=== PATIENT | male | born 1990 | race Caucasian/White ===

== ENCOUNTER 2023-12-27 11:25 | Day surgery (SDC) | payer OTHER, SELFPAY ==
[2023-12-25 10:46] VITALS: BMI 34.9
[2023-12-27] VITALS (10 sets, daily range): BP systolic 120–144; BP diastolic 66–93; PULSE 81–100; RESP 10–17; TEMP 36.9–37.4; O2SAT 95–99; BMI 34.9
--- NOTE | 2023-12-27 11:49 | PM.PREOP ---
Pre-operative Note Interval Note History & Physical reviewed/Exam performed by Physician: Yes Changes to H&P: No
[2023-12-27] MEDS: LACTATED RINGERS 1,000 ML 42 ML IV ×2 (12:03→13:53)
--- NOTE | 2023-12-27 12:24 | SUR.PREOP ---
Block start time [1217] . Time out completed 1215. Monitoring initiated and maintained throughout procedure. Oxygen and medications given per anesthesiologist instructions. Patient remained stable throughout procedure, no adverse reactions noted. Block end time [1224].
[2023-12-27] MEDS: CEFAZOLIN 2 GM/100 ML PREMIX 100 ML IV (14:12)
[2023-12-27] MEDS: TRANEXAMIC ACID 1,000 MG in SODIUM CHLORIDE 0.9% 100 ML 200 MG IV (14:23)
--- NOTE | 2023-12-27 14:27 | SUR.OPER ---
Lateral on padded OR bed with deng bag positioner, head on pillow, gel axillary roll in place, bottom leg bent with gel pad under knee to foot, upper leg straight and supported with pillows. Operative arm secured in shoulder positioning suspension device. non-operative arm secured on padded arm board. Safety belt at hip, tape over blanket securing lower legs.
[2023-12-27] MEDS: BUPIVACAINE 0.25% (PF) 30 ML, EPINEPHrine 0.15 MG INJ (14:53)
--- NOTE | 2023-12-27 15:30 | P.OP_ITS ---
Operative Date/Time/Diagnoses Date of procedure: 12/27/23 Time of procedure: 15:30 Pre-op diagnosis: Left shoulder posterior labral tear Post-op diagnosis: same Procedure & Clinicians Procedure: Left shoulder posterior labral repair Same procedure as scheduled: Yes Indications: This is a 33-year-old male who has had chronic left shoulder pain now has completed months of conservative treatment. MRI demonstrates a possible posterior labral tear. We previously discussed a labral repair. Risks and benefits of surgery were discussed again including the risk of infection, damage to internal structures, bleeding, nerve injury, instability, need for revision surgery, blood clots, anesthesia and . No guarantees were made regarding outcomes. Patient expressed understanding and accepted these risks and wished to go forward with surgery and consent was signed. Surgeon: Dave Mancilla Kitchenwhere Maker: Brea Jolly Anesthesia Type: General Operative Notes Findings: Findings: Exam under anesthesia: Normal range of motion. No instability anterior Biceps long head: Intact sling, normal attachment to the anchor. Subscapularis: Intact Rotator cuff: Intact without any undersurface tearing noted Inferior capsule: Intact and attached to the glenoid and humeral head Glenoid cartilage: No chondromalacia, no anterior bone loss noted Humeral head: Smooth and intact,small flat Hill-Sachs lesion noted Posterior labrum, instability of the labrum with a tear from 3:00 to 6:00 Prosthetic devices, grafts, tissues, transplants, or devices: Implants: Arthrex 1.8 mm knotless FiberTak x3 Estimated Blood Loss (mL): 10 Blood products transfused: none Procedure in detail: Description of procedure: The patient was seen and evaluated in the preoperative holding area where the risks, benefits, and alternatives of the surgery were discussed. Risks include bleeding, infection, damage to neurovascular structures including the axillary nerve, blood clots including pulmonary embolism, worsening of pain, stiffness, swelling, failure of the surgery, recurrent instability and the need for future surgery. No guarantees were made regarding outcomes. They consented to surgery and the correct operative extremity was marked with my initials. The patient was then brought to the operating room and underwent smooth induction of anesthesia. Patient was placed in the lateral position with the left upper extremity facing up. An axillary roll was placed and all bony prominences were padded and the beanbag was suctioned. 2 g of Ancef were delivered intravenously. The left upper extremity was prepped and draped in the standard sterile fashion. The arm was placed in the suspension device with 10 lb of weight. A time-out was then performed in my initials were again confirmed. A standard posterior portal was then established with a Allison portal Last a viewing portal was established just posterior to the biceps long head tendon. A diagnostic scope was performed noting the above findings. A 7 mm cannula was used for the anterior and viewing portals. A liberator was used through the posterior working portal to elevate the posterior labrum and capsule off of the posterior glenoid. A ring curette was used to freshen up the edges of the cartilage. Using a 1.8 mm Arthrex knotless FiberTak system we began inferiorly using a curved guide starting between 6 and 5 o'clock. The 1st anchor was placed in a SutureLasso was used to take the passing suture around the labrum and capsule. This was then tightened down through the anterior working portal using the knotless system. This process was repeated at 4 and 3 o'clock ending at the height of upper border of the subscapularis This proved to be a good repair and the head was noted to be centered over the glenoid at the end of the case. The shoulder was suctioned dry and the arthroscope was removed. 15 cc of Marcaine were placed into the joint. Portals were then closed with Monocryl and dressed with Xeroform, 4x4s and ABDs. Patient was placed into a sling and woken from anesthesia. Attending/assistant operations manager participation: This operation could not have been safely performed (without compromising the technical results or length of the procedure) without the assistance of a skilled surgical forceps fabricator. The surgical forceps fabricator was medically necessary for proper positioning, retraction and manipulation of instruments, proper exposure and manipulation of tissue. Complications: none Post-operative Condition: stable Disposition: PACU Plan for aftercare: Postoperative instructions: Sling to remain on for 6 weeks. Patient may remove dressings after postoperative day 3, and allow soap and water to run over the incisions in the shower. Placed Band-Aids over the incisions for at least 2 more days. First postoperative visit in 2 weeks, 2nd postoperative visit in 6 weeks.
== END 2023-12-27 16:12 | disposition home or self-care (01) ==
PROVIDERS: Referring Provider Orthopaedic Surgery; Visit Provider Orthopaedic Surgery
PROC: 0RQK4ZZ Repair Left Shoulder Joint, Percutaneous Endoscopic Approach (ICD-10-PCS; CPT 29807; principal; 2023-12-27 12:45)
DX: S43.432A Superior glenoid labrum lesion of left shoulder, initial encounter (principal)
CPT/HCPCS: 29807; 64415; J0171; J0690; J1100; J2250; J2405; J2704; J3010